=== PATIENT | male | born 1960 | race Caucasian/White ===

== ENCOUNTER → 2016-07-17 | Outpatient (REF) | LOC: WSOH 10:38 | DX: Z02.4 Encounter for examination for driving license (principal) ==

== ENCOUNTER 2017-11-10 10:04 | Emergency (ER) | payer OTHER ==
[~2017-11-10] VITALS: Ht 180.3 cm; Wt 72.7 kg
[2017-11-10 10:16] VITALS: TEMP 97.4
[2017-11-10 11:29] VITALS: BP 151/65; PULSE 70
== END 2017-11-10 11:30 | disposition home or self-care (01) ==
LOC: COL.ER 10:04
DX: S49.92XA Unspecified injury of left shoulder and upper arm, initial encounter (principal); F17.210 Nicotine dependence, cigarettes, uncomplicated; Z98.890 Other specified postprocedural states; X50.0XXA Overexertion from strenuous movement or load, initial encounter; Y92.89 Other specified places as the place of occurrence of the external cause

== ENCOUNTER → 2017-12-08 | Outpatient (CLI) | payer OTHER, BC | LOC: COL.RAD 12:03 | DX: M50.11 Cervical disc disorder with radiculopathy, high cervical region (principal); M48.02 Spinal stenosis, cervical region ==